=== PATIENT | male | born 1945 | race Caucasian/White ===

== ENCOUNTER 2018-06-28 18:22 | Emergency (ER) | payer OTHER ==
[~2018-06-28] VITALS: Ht 180.3 cm; Wt 80.7 kg
[~2018-06-28 18:22] MED LIST: ACETAMINOPHEN650 M5 PO; ADULT LOW DOSE81 MG PO; ASCRIPTIN 325325 MG PO; CARDIZEM CD180 MG PO; CINNAMON PO; FISHOIL PO; FLAXSEED1000 MG PO; HYDROCHLOROTHIA25 M1 PO; LISINOPRIL10 MG PO; MAGNESIUM OXID200 MG PO; MAXZIDE 75-501 EACH PO; MULTIPLE VITAM1 EAC1 PO; MULTIVITAMINS PO; OXYCODONE HCL5 M1 PO; PACERONE 200 M200 M1 PO; PACERONE 200 M200 MG PO; PERCOCET 5-3251 EACH PO; PHENERGAN 25 MG25 M1 PO; SIMVASTATIN40 MG PO; VITAMIN B COMP1 EAC7; VITAMIN C120 GM
[2018-06-28 18:55] LABS: ABSOLUTE BASOPHILS 0.1 thou/uL (0.0-0.2); ABSOLUTE EOSINOPHILS 0.6 thou/uL (0.0-0.7); ABSOLUTE LYMPHOCYTES 2.5 thou/uL (0.8-5.3); ABSOLUTE MONOCYTES 0.8 thou/uL (0.0-1.2); ABSOLUTE NEUTROPHILS 3.6 thou/uL (1.6-8.1); BASOPHILS 1.1 %; EOSINOPHILS 7.3 %; HEMATOCRIT 42.3 % (42.0-52.0); HEMOGLOBIN 14.3 gm/dL (14.0-18.0); LYMPHOCYTES 33.6 %; MCHC 33.7 g/dL (28.0-37.0); MCV 94.8 fL (80.0-100.0); MONOCYTES 10.4 %; NUCLEATED RBCS 0 /100WBC; PLATELET COUNT* 280 thou/uL (150-400); POLYS 47.6 %; RBC 4.46 mil/uL (4.50-6.00); RDW-CV 13.6 % (10.5-14.5); WBC 7.6 thou/uL (4.0-11.0)
[2018-06-28 19:00] LABS: URINE BILIRUBIN NEGATIVE (Negative); URINE BLOOD NEGATIVE (Negative); URINE CLARITY CLEAR; URINE COLOR YELLOW; URINE GLUCOSE-RANDOM NEGATIVE (Negative); URINE KETONES NEGATIVE (Negative); URINE LEUKOCYTES-REFLEX NEGATIVE (Negative); URINE NITRITE-REFLEX NEGATIVE (Negative); URINE PROTEIN NEGATIVE (Negative); URINE UROBILINOGEN 0.2 E.U./dl (0.2-1.0)
[2018-06-28 19:01] LABS: ANION GAP 9 mmol/L (7-16); BUN 18 mg/dL (7-18); CALCIUM 9.5 mg/dL (8.5-10.1); CHLORIDE 99 mmol/L (98-107); CO2 28 mmol/L (21-32); CREATININE 1.1 mg/dL (0.6-1.3); GLUCOSE 97 mg/dL (70-99); POTASSIUM 3.8 mmol/L (3.5-5.1); SODIUM 136 mmol/L (136-145)
[2018-06-28 19:07] LABS: APTT 27.9 Seconds (25.0-31.3); PROTIME 10.7 Seconds (9.20-11.50)
[2018-06-28 19:08] LABS: AMP/METHAMP Negative (Negative); BARBITURATES Negative (Negative); BENZODIAZEPINES Negative (Negative); COCAINE Negative (Negative); METHADONE Negative (Negative); OPIATES Negative (Negative); PCP Negative (Negative); THC Negative (Negative)
[2018-06-28 19:08] LABS: ALBUMIN 4.1 g/dL (3.4-5.0); ALKALINE PHOSPHATASE 81 U/L (46-116); SGOT 21 U/L (15-37); SGPT 31 U/L (30-65); TOTAL BILIRUBIN 0.5 mg/dL (<0.1-1.0); TOTAL PROTEIN 8.1 g/dL (6.4-8.2); TROPONIN-I LEVEL <0.06 ng/mL (<0.06)
[2018-06-28 19:36] VITALS: BP 122/77
--- NOTE | 2018-06-30 16:54 | EKG ---
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: : 1945 Requested By: Beth Downey Order Number: [id number] MD: Doyle Obrien Measurements Intervals [place] Rate: 73 P: ND: QRS: -18 QRSD: 93 T: 17 QT: 437 QTc: 482 Interpretive Statements Probable sinus rhythm with baseline artifact Inferior infarct, old Compared to ECG 11/12/2011 04:45:44 Myocardial infarct finding now present Ventricular premature complex(es) no longer present Electronically Signed On 06-30-2018 16:54:39 CDT by Doyle Obrien [email or web address] <ELECTRONICALLY SIGNED> By: Doyle Obrien MD, [facility] 06/30/18 1831 183 29 Doyle Obrien MD, [facility] /EPI
--- NOTE | 2018-06-30 16:57 | EKG ---
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1945 Requested By: Beth Downey Order Number: [id number] MD: Doyle Obrien Measurements Intervals [place] Rate: 73 P: PA: QRS: -18 QRSD: 100 T: -1 QT: 440 QTc: 485 Interpretive Statements Atrial flutter with varied AV block possible Inferior infarct, old Compared to ECG 11/12/2011 04:45:44 Myocardial infarct finding now present Ventricular premature complex(es) no longer present Electronically Signed On 06-30-2018 16:56:54 CDT by Doyle Obrien [email or web address] <ELECTRONICALLY SIGNED> By: Doyle Obrien MD, [facility] 06/30/18 1656 1908 07 Doyle Obrien MD, [facility] /EPI
== END 2018-06-28 19:38 | disposition home or self-care (01) ==
LOC: M.ERS 18:22
PROVIDERS: Personal Emergency Response Attendant
DX: F10.129 Alcohol abuse with intoxication, unspecified (principal); Y90.7 Blood alcohol level of 200-239 mg/100 ml; R55 Syncope and collapse; R53.1 Weakness; E78.00 Pure hypercholesterolemia, unspecified; Z88.0 Allergy status to penicillin; Z79.899 Other long term (current) drug therapy